=== PATIENT | female | born 1980 | race Caucasian/White ===

== ENCOUNTER 2023-09-10 18:24 | Inpatient (IN) | payer OTHER ==
[~2023-09-10] VITALS: Ht 175.3 cm; Wt 77.6 kg
--- NOTE | 2023-09-10 18:39 | NUR ---
1505- PROVIDER FROM [facility] CALLED REQUESTING TRANSFER FOR PATIENT WITH SBO. CALL TRANSFERRED TO DR. DORSEY WHO ACCEPTS PATIENT FOR OBS STATUS. PATIENT WILL COME VIA EMS.
--- NOTE | 2023-09-10 19:38 | NUR ---
Patient arrived to room 350 via stretcher. Admissions notified of arrival. Dr Bolanos notified of arrival as well.
[2023-09-10] MEDS ORDERED: ZOLOFT 100MG100 MG PO (19:42)
[2023-09-10] MEDS ORDERED: PROTONIX20 MG PO (19:43)
[2023-09-10 19:48] VITALS: BP 135/77; PULSE 80; TEMP 98.7
--- NOTE | 2023-09-10 20:02 | NUR ---
pt arrived to room 350 at 1940 via EMS. NG to LIS with no output so far. pt ambulated to bathroom independently without issue. pt denies pain. pt stating no N/V so far. bowel sounds absent all quadrants. admission, med rec, and physical assessment complete. call light in reach. all needs met at this time.
[2023-09-10 21:22] VITALS: BP_SYST 135
[2023-09-10] MEDS ORDERED: D5NS & 20 mEq KCl 1,000 ML IV SCH (22:30)
[2023-09-10] MEDS ORDERED: Ondansetron 4 MG/2 ML VIAL IV PRN (22:30)
[2023-09-10] MEDS ORDERED: Phenol 1.4% Spray 180 ML BOTTLE MM PRN (22:30)
[2023-09-10] MEDS ORDERED: HYDROmorphone 0.5 MG/0.5 ML SYRINGE IV PRN (22:30)
[2023-09-11] VITALS (12 sets, daily range): BP systolic 97–118; BP diastolic 61–71; PULSE 69–96; TEMP 98–99
--- NOTE | 2023-09-11 01:06 | NUR ---
pt called reporting 7/10 abd pain and nausea. prn dilaudid and zofran administered per orders. NG continues to LIS with green drainage. pt resting in bed. call light in reach. all needs met at this time.
--- NOTE | 2023-09-11 11:11 | NUR ---
D: Steam Finisher stopped by room on rounds. A: Pt was resting and content. Pt has no needs right now. P: Steam Finisher informed pt that if she needed anything to let her nurse know. Steam Finisher will follow up as needed.
--- NOTE | 2023-09-11 12:36 | NUR ---
This RN spoke with Neto at regarding the transfer. They are waiting on the preauthorization. This RN spoke with Mechelle Godoy about the pre auth, she gave me the referance number [id number]. This RN faxed that information to .
--- NOTE | 2023-09-11 13:47 | NUR ---
WYATT met with patient and Dilshad ([phone]) to complete initial assessment for discharge planning. Patient and live in [place] with their 17 and 10 year old children. Patient lists her mother Patricia Hoskins ([phone]) as an emergency contact. Patient denies having a DPOA and decines to complete one at this time. Patient uses [facility] for medical care and is covered by [facility] insurance due to being retired . Patient uses [facility] and denies using any DME. stated that patient is being transferred to [facility] for surgery today. Discharge plan: Transfer to [facility]
--- NOTE | 2023-09-11 16:24 | NUR ---
This RN called regarding the transfer, spoke with Neto again, he stated that they that a message was left for alona Min regarding the need for an authorization. Dr. Corey was updated along with Rochelle, surgical director. This RN called [facility] to transfer there, they are on diversion at this time, but placed patient on a list. We are to call in the morning to see if a bed is available.
--- NOTE | 2023-09-11 18:30 | NUR ---
report received from davy knox. pt resting in bed with at bedside. NG continues to LIS with green drainage. pt denies pain or nausea. call light in reach. all needs met at this time.
--- NOTE | 2023-09-11 20:23 | NUR ---
pt reporting 7/10 sinus and throat pain. prn dilaudid administered per orders. warm compress applied to patient face to help relieve sinus pressure. call light in reach. all needs met at this time.
--- NOTE | 2023-09-11 21:01 | NUR ---
shift assessment complete, see documentation. pt resting in bed with warm compress. call light in reach. all needs met at this time.
[2023-09-12] VITALS (11 sets, daily range): BP systolic 112–773; BP diastolic 71–84; PULSE 67–79; TEMP 98.2–99.2
--- NOTE | 2023-09-12 05:43 | NUR ---
pt left ac iv infilitrated with ivf going. left ac noted to be hard but pt reports feeling better after iv removal. ivf now running to right ac iv without issue. call light in reach. all needs met at this time.
--- NOTE | 2023-09-12 07:15 | NUR ---
Pt. laying in bed with at bedside. Pt. is A&OX3, assessment complete. IV to rt. ac patent, IV fluids infusing per orders. NG to rt. nare. Pt. reports feeling like it has "slipped out. ng at 30 cm. Pt. reports thinking they told her it was at 50 cm. Tube pushed back in to 50 cm and the air bolus to tube and auscultated for placement. Air belch noted to auscutation. Tube re secured to nose. Pt. tolerated fair. Pt. reports pain at a 2 and denies need for pain meds. Pt. denies further needs, call light within reach.
--- NOTE | 2023-09-12 10:58 | NUR ---
Initial visit; Patient not looking well states she is maybe a little better and thanked Delivery Route Driver for stopping in. Stephy's also present and looking concerned. Delivery Route Driver offered God's blessings and will keep Stephy in her prayers.
[2023-09-12] MEDS ORDERED: Pantoprazole 40 MG in NS 10 ML IV SCH (17:53)
--- NOTE | 2023-09-12 20:01 | NUR ---
report received from anastasia knox. pt loaded to EMS and escorted out at 1914. attempted to call report to Janusz at [facility] at [phone], [phone], and was able to give report at 1949.
== END 2023-09-12 19:15 | disposition short-term general hospital (02) | DRG 760 ==
LOC: SURG 18:24
PROVIDERS: ADMIT Surgery
DX: N83.8 Other noninflammatory disorders of ovary, fallopian tube and broad ligament (principal); K56.609 Unspecified intestinal obstruction, unspecified as to partial versus complete obstruction; F41.9 Anxiety disorder, unspecified; F32.A Depression, unspecified; K21.9 Gastro-esophageal reflux disease without esophagitis; Z90.710 Acquired absence of both cervix and uterus; Z88.2 Allergy status to sulfonamides
CPT/HCPCS: C9113; J1170; J2405; J3480